=== PATIENT | male | born 2000 | race Caucasian/White ===

== ENCOUNTER → 2022-01-20 | Outpatient (CLI) | payer OTHER ==
--- NOTE | 2022-01-20 09:11 | Diagnostic Imaging Report ---
INDICATION: Horse riding injury with back pain. AP, oblique and lateral views of lumbar spine are obtained. FINDINGS: Examination of the lumbosacral spine fails to reveal evidence of fracture, dislocation or other bony abnormality. There is normal curvature and alignment. The vertebral bodies and the intervertebral spaces are well maintained. IMPRESSION: Negative lumbosacral spine. Dictated by: Dictated on workstation # [id number]
== END ==
LOC: RAD FS 08:38
PROVIDERS: ATTEND Nurse Practitioner
DX: M54.50 Low back pain, unspecified (principal)
CPT/HCPCS: 72110